=== PATIENT | female | born 1945 | race Caucasian/White ===

== ENCOUNTER 2019-02-17 05:01 | Day surgery (SDC) | payer OTHER, MEDICARE ==
[2019-02-17] MEDS ORDERED: BUPIVACAINE HCL/PF 0.25% (2.5MG/ML) 10 ML VIAL ONE (07:15)
[2019-02-17] MEDS ORDERED: methylPREDNISolone ACET (DEPO) 80 MG/1 ML VIAL ONE (07:15)
[2019-02-17] MEDS ORDERED: PROPOFOL 20 ML ONE ×2 (07:49)
[2019-02-17] MEDS ORDERED: LIDOCAINE HCL/PF 2% SDV 5ML VIAL ONE (07:49)
[2019-02-17] MEDS ORDERED: methylPREDNISolone ACET (DEPO) 80 MG/1 ML VIAL IJ ONE (08:10)
[2019-02-17] MEDS ORDERED: LIDOCAINE HCL 1% PRESERVATIVE FREE - 30ML VIAL IJ ONE (08:10)
[2019-02-17] MEDS ORDERED: BUPIVACAINE HCL/PF 0.25% (2.5MG/ML) 10 ML VIAL IJ ONE (08:10)
[2019-02-17 08:31] VITALS: TEMP 97.7
[2019-02-17 09:11] VITALS: BP 115/53; PULSE 63
--- NOTE | 2019-02-18 06:09 | OP ---
DATE OF OPERATION: 02/17/2019 PREOPERATIVE DIAGNOSIS: Left L3-L4 foraminal disc bulge with left L3-L4 radiculopathy. POSTOPERATIVE DIAGNOSIS: Left L3-L4 foraminal disc bulge with left L3-L4 radiculopathy. ATTENDING SURGEON: Daljit Workman MD PROCEDURE: 1. Left L3-L4 epidural steroid injection. 2. Intraoperative fluoroscopy. ANESTHESIA: Local with IV sedation. ANESTHESIOLOGIST: Margo Lundberg MD INDICATIONS: The patient is a 74-year-old female with recurrent lower back pain, lumbar radiculopathy. She had previously responded to her epidural steroid injection several years ago. She is here for her first injection of the year. The risks of the procedure include, but are not limited to, bleeding, infection, spinal headache, and neurological injury. The patient understands the indications for the procedure, the procedure in detail, risks and benefits, and alternative treatments for her lumbar condition, and she wishes to proceed. No guarantees were given for a favorable outcome. PROCEDURE IN DETAIL: After the patient was taken to the operating room, she was placed in the prone position with a pillow under her hips. Lumbar region was cleaned with alcohol and prepped with Betadine. A skin wheal was raised with 5 mL of 1% Xylocaine, and a 20-gauge spinal needle was inserted under AP and lateral fluoroscopic guidance from a left-sided approach to L3-L4. Loss of resistance technique was utilized, and there was no CSF or blood backflow. Depo-Medrol 80 mg and 1 mL of 0.25% Marcaine were injected. The needle was withdrawn and sterile bandage was applied. The needle bevel was turned cephalad and laterally towards the L3-L4 neural foramen. There was no CSF or blood backflow. The patient tolerated the procedure well and was turned back to the supine position, moving bilateral lower extremities well. She was not complaining of a headache. DALJIT WORKMAN M.D. [id number]
== END 2019-02-17 09:11 | disposition home or self-care (01) ==
LOC: JASU-SURG 05:01
PROVIDERS: ATTEND Neurological Surgery
PROC: 3E0R3BZ Introduction of Anesthetic Agent into Spinal Canal, Percutaneous Approach (ICD-10-PCS; 2019-02-17)
PROC: B01BYZZ Fluoroscopy of Spinal Cord using Other Contrast (ICD-10-PCS; 2019-02-17)
PROC: 3E0R33Z Introduction of Anti-inflammatory into Spinal Canal, Percutaneous Approach (ICD-10-PCS; principal; 2019-02-17 07:30)
DX: M51.26 Other intervertebral disc displacement, lumbar region (principal); M54.16 Radiculopathy, lumbar region
CPT/HCPCS: 76000-TC-FY